=== PATIENT | female | born 1945 | race Caucasian/White ===

== ENCOUNTER 2021-10-04 06:55 | Emergency (ER) | payer OTHER, MEDICARE ==
[~2021-10-04] VITALS: Ht 170.2 cm; Wt 77.1 kg
[2021-10-04 07:23] VITALS: BP_SYST 107
[2021-10-04] MEDS ORDERED: BACITRACIN 1 GM OINT TP ONE (07:58)
[2021-10-04 08:20] VITALS: BP_SYST 107
== END 2021-10-04 08:20 | disposition home or self-care (01) ==
LOC: SED 06:55
DX: H92.22 Otorrhagia, left ear (principal)
CPT/HCPCS: 99281

== ENCOUNTER 2023-05-03 10:27 | Emergency (ER) | payer OTHER, MEDICARE ==
[~2023-05-03] VITALS: Ht 177.8 cm; Wt 93.9 kg
[2023-05-03 10:30] VITALS: BP_SYST 126; PULSE 87; RESP 19; TEMP 98.8; O2SAT 91
[2023-05-03] MEDS ORDERED: NS 500 ML IV ONE (11:00)
[2023-05-03 11:04] LABS: BASOPHILS # (AUTO) 0.1 K/uL (0.0-0.2); BASOPHILS % (AUTO) 0.5 % (0.0-2.0); EOSINOPHILS # (AUTO) 0.1 K/uL (0.0-0.4); EOSINOPHILS % (AUTO) 0.8 % (0.0-4.0); HEMATOCRIT 41.2 % (36-48); HEMOGLOBIN 13.7 g/dL (12.0-16.0); LYMPHOCYTES # (AUTO) 4.7 K/uL (1.0-5.5); LYMPHOCYTES % (AUTO) 39.2 % (20.5-51.5); MEAN CORPUSCULAR HEMOGLOBIN 30 pg (27-31); MEAN CORPUSCULAR HGB CONC 33 % (32-36); MEAN CORPUSCULAR VOLUME 90 fL (79.0-98.0); MONOCYTES # (AUTO) 0.6 K/uL (0.0-1.0); MONOCYTES % (AUTO) 5.4 % (1.7-9.3); NEUTROPHILS # (AUTO) 6.5 K/uL (1.8-7.7); NEUTROPHILS % (AUTO) 54.1 % (40.0-70.0); PLATELET COUNT (AUTO) 315 K/uL (130-430); RED BLOOD CELL COUNT(AUTO) 4.56 MIL/uL (4.2-6.2); RED CELL DISTRIBUTION WIDTH 13.6 % (9.0-15.0)
[2023-05-03 11:18] LABS: ANION GAP 8 (5-15); CALCIUM 9.1 mg/dL (8.4-11.0); CARBON DIOXIDE 28 mmol/L (23-29); CHLORIDE 103 mmol/L (98-107); GLUCOSE 105 mg/dL (74-106); POTASSIUM 3.4 mmol/L (3.5-5.1); SODIUM SERUM 139 mmol/L (136-145); UREA NITROGEN, BLOOD 9 mg/dL (8-21)
[2023-05-03 11:28] LABS: CREATINE KINASE, TOTAL 117 U/L (26-192); THYROID STIMULATING HORMONE 0.89 uIu/mL (0.34-4.82)
[2023-05-03 11:39] LABS: INR 5.1 (0.8-1.2)
[2023-05-03 12:00] LABS: COVID19 ANTIGEN SOFIA FIA NEGATIVE (NEGATIVE)
[2023-05-03 12:01] LABS: INFLUENZA TYPE A Negative (NEGATIVE); INFLUENZA TYPE B NEGATIVE (NEGATIVE)
[2023-05-03 13:38] LABS: ALBUMIN 3.6 g/dL (3.4-4.8); BILIRUBIN,DIRECT 0.1 mg/dL (0.0-0.3); TOTAL BILIRUBIN 0.5 mg/dL (0.0-1.0); TOTAL PROTEIN, SERUM 7.3 g/dL (6.4-8.3)
[2023-05-03 14:11] VITALS: BP_SYST 134; PULSE 93; RESP 18; TEMP 97.4; O2SAT 96
[2023-05-03] MEDS ORDERED: ZIT250 PO (14:15)
== END 2023-05-03 14:09 | disposition home or self-care (01) ==
LOC: SED 10:27
DX: R00.2 Palpitations (principal); J18.9 Pneumonia, unspecified organism; D68.32 Hemorrhagic disorder due to extrinsic circulating anticoagulants; I10 Essential (primary) hypertension; Z86.79 Personal history of other diseases of the circulatory system; Z79.899 Other long term (current) drug therapy; Z20.822 Contact with and (suspected) exposure to COVID-19
CPT/HCPCS: 99285; 96360; 71045; 87426; 80076; 80048; 82550; 84439; 84443; 85025; 85610; 85730; 84484; 36415; 93005; 87804 ×2; J7030